=== PATIENT | female | born 1975 | race Hispanic/Latino ===

== ENCOUNTER 2021-07-14 17:01 | Emergency (ER) | payer OTHER ==
[~2021-07-14] VITALS: Ht 152.4 cm; Wt 66.4 kg
[2021-07-14] MEDS ORDERED: LOSA100T5 PO (17:13)
[2021-07-14] MEDS ORDERED: PROZ20CA11 PO (17:13)
[2021-07-14 22:11] VITALS: BP 160/88
[2021-07-14] MEDS ORDERED: KETOROLAC 30 MG/ML 1ML VIAL IM ONE (23:30)
[2021-07-14] MEDS ORDERED: methocarbamoL 500 MG TAB PO ONE (23:30)
[2021-07-14] MEDS ORDERED: LIDOCAINE 5% (LIDODERM) PATCH TD ONE (23:30)
[2021-07-15] MEDS ORDERED: METH-1164 PO (01:32)
[2021-07-15] MEDS ORDERED: LIDO5DIS41 TOP (01:33)
[2021-07-15] MEDS ORDERED: **NOTE PATIENT COMMENT** MISC XX SCH (21:00)
== END 2021-07-15 02:30 | disposition home or self-care (01) ==
LOC: M ED 17:01
DX: M54.9 Dorsalgia, unspecified (principal); W01.0XXA Fall on same level from slipping, tripping and stumbling without subsequent striking against object, initial encounter; Y92.099 Unspecified place in other non-institutional residence as the place of occurrence of the external cause; Y93.9 Activity, unspecified; Y99.9 Unspecified external cause status; I10 Essential (primary) hypertension; F17.200 Nicotine dependence, unspecified, uncomplicated
CPT/HCPCS: 72072; 72110; 84702; 99283; J1885

== ENCOUNTER 2021-10-29 10:18 | Emergency (ER) | payer OTHER ==
[~2021-10-29] VITALS: Ht 165.1 cm; Wt 66.9 kg
[~2021-10-29 10:18] MED LIST: LIDO5DIS41 TOP; LOSA100T5 PO; METH-1164 PO; PROZ20CA11 PO
[2021-10-29] MEDS ORDERED: KETOROLAC 30 MG/ML 1ML VIAL IM ONE (13:00)
[2021-10-29 13:05] VITALS: BP 190/103
[2021-10-29] MEDS ORDERED: LOSARTAN 50MG TABLET PO ONE (13:05)
[2021-10-29] MEDS ORDERED: NORV5TAB PO (13:06)
[2021-10-29] MEDS ORDERED: LOSA100T5 PO (13:06)
[2021-10-29] MEDS ORDERED: KLON2TAB PO (13:06)
[2021-10-29] MEDS ORDERED: PROZ20CA11 PO (13:06)
[2021-10-29] MEDS ORDERED: ACET650T61 PO (13:08)
[2021-10-29 14:10] VITALS: BP 169/89
== END 2021-10-29 14:22 | disposition home or self-care (01) ==
LOC: M ED 10:18
DX: Z76.0 Encounter for issue of repeat prescription (principal); G43.909 Migraine, unspecified, not intractable, without status migrainosus; I10 Essential (primary) hypertension; G89.29 Other chronic pain; M54.9 Dorsalgia, unspecified; F32.A Depression, unspecified; F41.9 Anxiety disorder, unspecified; Z79.899 Other long term (current) drug therapy
CPT/HCPCS: 96372; 99283; J1885

== ENCOUNTER → 2022-02-03 | Outpatient (REF) | payer OTHER, MEDICAID ==
[~2022-02-03] MED LIST changes: +ACET650T61 PO; +KLON2TAB PO; +NORV5TAB PO
[2022-02-03 17:29] LABS: BASO # 0.1 10^3/uL (0.0-0.2); BASO % 0.7 % (0.0-1.0); EOS # 0.1 10^3/uL (0.0-0.5); EOS % 1.1 % (0.0-3.0); HEMATOCRIT 36.1 % (36.0-47.0); HEMOGLOBIN 11.5 g/dl (12.0-15.5); LYMPH # 2.1 10^3/uL (1.5-5.0); LYMPH % 29.7 % (24.0-44.0); MEAN CORPUSCULAR HEMOGLOBIN 30.5 pg (27.0-33.0); MEAN CORPUSCULAR HGB CONC 31.9 g/dl (32.0-36.5); MEAN CORPUSCULAR VOLUME 95.8 fl (80.0-96.0); MONO # 0.4 10^3/uL (0.0-0.8); MONO % 4.9 % (2.0-8.0); NEUTROPHILS # 4.6 10^3/uL (1.5-8.5); NEUTROPHILS % 63.3 % (36.0-66.0); PLATELET COUNT, AUTOMATED 252 10^3/uL (150-450); RED BLOOD COUNT 3.77 10^6/uL (4.00-5.40); WHITE BLOOD COUNT 7.2 10^3/uL (4.0-10.0)
[2022-02-03 18:05] LABS: HEMOGLOBIN A1c 5.3 %
[2022-02-03 19:17] LABS: ALT/SGPT 18 U/L (12-78); BILIRUBIN,TOTAL 0.2 MG/DL (0.2-1.0); BLOOD UREA NITROGEN 11 MG/DL (7-18); CALCIUM LEVEL 9.2 MG/DL (8.5-10.1); CARBON DIOXIDE LEVEL 28 MEQ/L (21-32); CHLORIDE LEVEL 107 MEQ/L (98-107); CREATININE FOR GFR 0.77 MG/DL (0.55-1.30); GLOMERULAR FILTRATION RATE > 60.0 (>58); GLUCOSE, FASTING 84 MG/DL (70-100); POTASSIUM SERUM 4.1 MEQ/L (3.5-5.1); SODIUM LEVEL 139 MEQ/L (136-145)
[2022-02-03 19:18] LABS: ALBUMIN 3.4 GM/DL (3.2-5.2); CHOLESTEROL LEVEL 201 MG/DL (<200); CHOLESTEROL RISK RATIO 4.369 (<5); HDL CHOLESTEROL 46 MG/DL (>40); LDL CHOLESTEROL 133 MG/DL (<100); NON-HDL-C 155 MG/DL; TOTAL PROTEIN 7.2 GM/DL (6.4-8.2); TRIGLYCERIDES LEVEL 110 MG/DL (<150)
== END ==
LOC: M LAB REF 16:21
PROVIDERS: ATTEND Nurse Practitioner Family
DX: Z13.228 Encounter for screening for other metabolic disorders (principal)

== ENCOUNTER → 2022-02-10 | Outpatient (CLI) | payer OTHER | LOC: M WHC 07:24 | PROVIDERS: ATTEND Nurse Practitioner Family | DX: Z12.31 Encounter for screening mammogram for malignant neoplasm of breast (principal) ==

== ENCOUNTER 2022-04-05 16:46 | Emergency (ER) | payer OTHER ==
[~2022-04-05] VITALS: Ht 152.4 cm; Wt 0.6 kg
[2022-04-05] MEDS ORDERED: DIFL150T PO (18:41)
[2022-04-05] MEDS ORDERED: AMOX875T2 PO (18:41)
[2022-04-05 18:46] VITALS: BP 135/86
== END 2022-04-05 18:55 | disposition home or self-care (01) ==
LOC: M ED 16:46
DX: J01.00 Acute maxillary sinusitis, unspecified (principal); K08.89 Other specified disorders of teeth and supporting structures; I10 Essential (primary) hypertension; F17.200 Nicotine dependence, unspecified, uncomplicated; Z79.891 Long term (current) use of opiate analgesic; Z79.811 Long term (current) use of aromatase inhibitors; Z79.899 Other long term (current) drug therapy

== ENCOUNTER 2022-04-11 00:56 | Emergency (ER) | payer MEDICAID, OTHER ==
[~2022-04-11] VITALS: Ht 152.4 cm; Wt 65.8 kg
[~2022-04-11 00:56] MED LIST changes: +AMOX875T2 PO; +DIFL150T PO
[2022-04-11 00:57] VITALS: BP 137/85
[2022-04-11] MEDS ORDERED: ADVITAB PO ×2 (01:11→17:25)
== END 2022-04-11 03:17 | disposition left against medical advice (07) ==
LOC: M ED 00:56
DX: Z53.21 Procedure and treatment not carried out due to patient leaving prior to being seen by health care provider (principal)

== ENCOUNTER 2022-04-11 17:06 | Emergency (ER) | payer OTHER ==
[~2022-04-11] VITALS: Ht 152.4 cm; Wt 64.5 kg
[~2022-04-11 17:06] MED LIST changes: +ADVITAB PO
[2022-04-11 17:10] VITALS: BP 146/84
[2022-04-11] MEDS ORDERED: ADVITAB PO (17:25)
== END 2022-04-11 18:17 | disposition left against medical advice (07) ==
LOC: M ED 17:06
DX: Z53.21 Procedure and treatment not carried out due to patient leaving prior to being seen by health care provider (principal)

== ENCOUNTER 2022-04-11 18:38 | Emergency (ER) | payer OTHER ==
[~2022-04-11] VITALS: Ht 154.9 cm; Wt 63.6 kg
[2022-04-11 19:52] VITALS: BP 146/86
== END 2022-04-11 23:22 | disposition left against medical advice (07) ==
LOC: M ED 18:38
DX: Z53.21 Procedure and treatment not carried out due to patient leaving prior to being seen by health care provider (principal)

== ENCOUNTER → 2022-05-18 | Outpatient (REF) | payer OTHER ==
[2022-05-18 12:37] LABS: CHOLESTEROL RISK RATIO 4.84 (<5); HDL CHOLESTEROL 40.9 MG/DL (>40); LDL CHOLESTEROL 136.3 MG/DL (<100)
== END ==
LOC: M LAB REF 11:38
PROVIDERS: ATTEND Nurse Practitioner Family
DX: R79.89 Other specified abnormal findings of blood chemistry (principal)

== ENCOUNTER 2022-06-13 00:48 | Emergency (ER) | payer MEDICAID, OTHER ==
[~2022-06-13] VITALS: Ht 152.4 cm; Wt 64.5 kg
[2022-06-13 00:55] VITALS: BP 126/97
[2022-06-13 01:38] LABS: BASO # 0.1 10^3/uL (0.0-0.2); BASO % 0.7 % (0.0-1.0); EOS # 0.3 10^3/uL (0.0-0.5); EOS % 3.7 % (0.0-3.0); HEMATOCRIT 33.7 % (36.0-47.0); HEMOGLOBIN 11.1 g/dl (12.0-15.5); LYMPH # 2.7 10^3/uL (1.5-5.0); LYMPH % 33.7 % (24.0-44.0); MEAN CORPUSCULAR HGB CONC 32.9 g/dl (32.0-36.5); MEAN CORPUSCULAR VOLUME 97.1 fl (80.0-96.0); MONO # 0.5 10^3/uL (0.0-0.8); MONO % 5.9 % (2.0-8.0); NEUTROPHILS # 4.5 10^3/uL (1.5-8.5); NEUTROPHILS % 55.6 % (36.0-66.0); PLATELET COUNT, AUTOMATED 301 10^3/uL (150-450); RED BLOOD COUNT 3.47 10^6/uL (4.00-5.40)
[2022-06-13 04:59] LABS: ALBUMIN 3.5 G/DL (3.2-5.2); ALKALINE PHOSPHATASE 59 U/L (46-116); ALT/SGPT 18 U/L (7.0-40); AST/SGOT 38 U/L (<34); BILIRUBIN,DIRECT < 0.1 MG/DL (<0.4); BILIRUBIN,TOTAL 0.2 MG/DL (0.3-1.2); BLOOD UREA NITROGEN 16 MG/DL (9-23); CALCIUM LEVEL 8.7 MG/DL (8.5-10.1); CARBON DIOXIDE LEVEL 27 MMOL/L (20-31); CHLORIDE LEVEL 107 MMOL/L (98-107); CREATININE FOR GFR 0.95 MG/DL (0.55-1.30); GLOMERULAR FILTRATION RATE > 60.0 (>58); GLUCOSE, FASTING 100 MG/DL (60-100); LIPASE 95 U/L (12-53); POTASSIUM SERUM 4.5 MMOL/L (3.5-5.1); SODIUM LEVEL 139 MMOL/L (136-145); TOTAL PROTEIN 6.9 G/DL (5.7-8.2)
== END 2022-06-13 04:06 | disposition left against medical advice (07) ==
LOC: M ED 00:48 → EDBD 00:48 → M ED 04:06
DX: Z53.21 Procedure and treatment not carried out due to patient leaving prior to being seen by health care provider (principal)

== ENCOUNTER → 2022-06-16 | Outpatient (REF) | payer OTHER ==
[~2022-06-16] MED LIST changes: +CEFD300C41; +FLUTISP; +KLON1TAB PO; +LORA-674; +MIRA3350 PO; +ONDA4TAB6; +ONDA4TAB6 PO; +PHEN1TAB73; +TAMS1CAP17
== END ==
LOC: M PLALAB 16:33
PROVIDERS: ATTEND Advanced Practice Midwife
DX: Z12.4 Encounter for screening for malignant neoplasm of cervix (principal); R87.610 Atypical squamous cells of undetermined significance on cytologic smear of cervix (ASC-US)

== ENCOUNTER 2022-06-21 15:08 | Emergency (ER) | payer OTHER ==
[~2022-06-21] VITALS: Ht 152.4 cm; Wt 63.6 kg
[~2022-06-21 15:08] MED LIST changes: -CEFD300C41; -FLUTISP; -KLON1TAB PO; -LORA-674; -MIRA3350 PO; -ONDA4TAB6; -ONDA4TAB6 PO; -PHEN1TAB73; -TAMS1CAP17
[2022-06-21] MEDS ORDERED: FLUTISP (15:26)
[2022-06-21] MEDS ORDERED: LORA-674 (15:26)
[2022-06-21] MEDS ORDERED: CEFD300C41 (15:26)
[2022-06-21] MEDS ORDERED: KLON1TAB PO (15:26)
[2022-06-21] MEDS ORDERED: PHEN1TAB73 (15:26)
[2022-06-21] MEDS ORDERED: ONDA4TAB6 (15:26)
[2022-06-21] MEDS ORDERED: TAMS1CAP17 (15:26)
[2022-06-21 20:59] LABS: BASO # 0.1 10^3/uL (0.0-0.2); BASO % 0.9 % (0.0-1.0); EOS # 0.2 10^3/uL (0.0-0.5); EOS % 2.4 % (0.0-3.0); HEMATOCRIT 33.6 % (36.0-47.0); LYMPH # 2.4 10^3/uL (1.5-5.0); LYMPH % 34.7 % (24.0-44.0); MEAN CORPUSCULAR HGB CONC 32.7 g/dl (32.0-36.5); MEAN CORPUSCULAR VOLUME 97.7 fl (80.0-96.0); MONO # 0.4 10^3/uL (0.0-0.8); NEUTROPHILS # 3.9 10^3/uL (1.5-8.5); NEUTROPHILS % 55.7 % (36.0-66.0); PLATELET COUNT, AUTOMATED 306 10^3/uL (150-450); RED BLOOD COUNT 3.44 10^6/uL (4.00-5.40)
[2022-06-21 21:14] LABS: ALBUMIN 3.6 G/DL (3.2-5.2); ALKALINE PHOSPHATASE 57 U/L (46-116); ALT/SGPT 25 U/L (7.0-40); AST/SGOT 44 U/L (<34); BILIRUBIN,TOTAL 0.3 MG/DL (0.3-1.2); BLOOD UREA NITROGEN 9 MG/DL (9-23); CALCIUM LEVEL 8.9 MG/DL (8.5-10.1); CARBON DIOXIDE LEVEL 26 MMOL/L (20-31); CHLORIDE LEVEL 107 MMOL/L (98-107); CREATININE FOR GFR 0.77 MG/DL (0.55-1.30); GLOMERULAR FILTRATION RATE > 60.0 (>58); GLUCOSE, FASTING 100 MG/DL (60-100); LIPASE 90 U/L (12-53); POTASSIUM SERUM 4.9 MMOL/L (3.5-5.1); SODIUM LEVEL 140 MMOL/L (136-145); TOTAL PROTEIN 7.2 G/DL (5.7-8.2)
[2022-06-21] MEDS ORDERED: NS 1,000 ML IV ONE (21:15)
[2022-06-21] MEDS ORDERED: MORPHINE 4 MG/ML 1ML VIAL IV ONE (21:15)
[2022-06-21] MEDS ORDERED: ONDANSETRON 4MG 2ML VIAL IV ONE (21:15)
[2022-06-21] MEDS ORDERED: ISOVUE-370 76% 100ML VIAL As Ordered ONE (21:22)
[2022-06-21] MEDS ORDERED: ONDA4TAB6 PO (23:31)
[2022-06-21 23:42] VITALS: BP 144/83
[2022-06-21] MEDS ORDERED: MIRA3350 PO (23:44)
== END 2022-06-21 23:44 | disposition home or self-care (01) ==
LOC: M ED 15:08
DX: R10.9 Unspecified abdominal pain (principal); R11.2 Nausea with vomiting, unspecified; D35.00 Benign neoplasm of unspecified adrenal gland; R74.8 Abnormal levels of other serum enzymes; M54.50 Low back pain, unspecified; I10 Essential (primary) hypertension; F17.200 Nicotine dependence, unspecified, uncomplicated; Z87.442 Personal history of urinary calculi; Z88.1 Allergy status to other antibiotic agents; Z79.811 Long term (current) use of aromatase inhibitors; Z79.2 Long term (current) use of antibiotics; Z79.83 Long term (current) use of bisphosphonates; Z79.899 Other long term (current) drug therapy
CPT/HCPCS: 74177; 76830; 76856; 80053; 81001; 83690; 85025; 93005; 93976; 96361; 96374; 99284; J2270; J2405; Q9967

== ENCOUNTER 2022-07-28 00:02 | Emergency (ER) | payer MEDICAID, OTHER ==
[~2022-07-28] VITALS: Ht 152.4 cm; Wt 66.8 kg
[~2022-07-28 00:02] MED LIST changes: +CEFD300C41; +FLUT50SP17; +KLON1TAB PO; +LORA-674; +MIRA3350 PO; +ONDA4TAB6; +ONDA4TAB6 PO; +PHEN1TAB73; +TAMS1CAP17
[2022-07-28 00:11] VITALS: BP 174/109
[2022-07-28] MEDS ORDERED: ERYTHROMYCIN OPHTH OINT OU ONE (01:25)
[2022-07-28] MEDS ORDERED: ERYT5OIN25 OP (01:30)
== END 2022-07-28 02:27 | disposition home or self-care (01) ==
LOC: M ED 00:02 → EDBD 00:02 → M ED 02:27
DX: H10.33 Unspecified acute conjunctivitis, bilateral (principal); I10 Essential (primary) hypertension; F41.9 Anxiety disorder, unspecified; F32.A Depression, unspecified; Z88.1 Allergy status to other antibiotic agents; Z79.83 Long term (current) use of bisphosphonates; Z79.811 Long term (current) use of aromatase inhibitors; Z79.899 Other long term (current) drug therapy

== ENCOUNTER → 2022-12-08 | Outpatient (CLI) | payer OTHER ==
[~2022-12-08] MED LIST changes: +CLON-952 PO; +ERYT5OIN25 OP; -KLON2TAB PO; +LORA-1041; -LORA-674
[2022-12-08 19:46] LABS: HIV 1&2 SCREEN NEGATIVE (NEGATIVE)
[2022-12-08 19:54] LABS: HEPATITIS C VIRUS ABY INDEX 0.16 INDEX (<0.8)
[2022-12-08 19:55] LABS: HEPATITIS B CORE ANTIBODY IGM NEGATIVE (NEGATIVE)
== END ==
LOC: M PLALAB 15:22
PROVIDERS: ATTEND Nurse Practitioner Family
DX: Z11.3 Encounter for screening for infections with a predominantly sexual mode of transmission (principal)

== ENCOUNTER 2023-01-13 06:09 | Emergency (ER) | payer OTHER ==
[~2023-01-13] VITALS: Ht 152.4 cm; Wt 65.9 kg
[~2023-01-13 06:09] MED LIST changes: -CEFD300C41; +CEFD300C42
[2023-01-13 06:17] VITALS: TEMP 98.1
[2023-01-13] MEDS ORDERED: AMOX500T PO (07:19)
[2023-01-13] MEDS ORDERED: AMPICILLIN SOD/SULBACTAM SOD 3 GM in D5W MINI-BAG PLUS 100 ML IV ONE (07:25)
[2023-01-13] MEDS ORDERED: KETOROLAC 30 MG/ML 1ML VIAL IV ONE (07:25)
[2023-01-13] MEDS ORDERED: dexAMETHasone 20MG/5ML VIAL IV ONE (07:25)
[2023-01-13] MEDS ORDERED: NS 1,000 ML IV ONE (07:25)
[2023-01-13 07:49] LABS: BASO % 0.4 % (0.0-1.0); EOS # 0.1 10^3/uL (0.0-0.5); EOS % 0.9 % (0.0-3.0); HEMATOCRIT 36.3 % (36.0-47.0); HEMOGLOBIN 12.3 g/dl (12.0-15.5); LYMPH # 1.2 10^3/uL (1.5-5.0); LYMPH % 13.1 % (24.0-44.0); MEAN CORPUSCULAR HEMOGLOBIN 33.2 pg (27.0-33.0); MEAN CORPUSCULAR HGB CONC 33.9 g/dl (32.0-36.5); MEAN CORPUSCULAR VOLUME 98.1 fl (80.0-96.0); MONO # 0.7 10^3/uL (0.0-0.8); MONO % 7.5 % (2.0-8.0); NEUTROPHILS # 7.3 10^3/uL (1.5-8.5); NEUTROPHILS % 77.9 % (36.0-66.0); PLATELET COUNT, AUTOMATED 254 10^3/uL (150-450); WHITE BLOOD COUNT 9.4 10^3/uL (4.0-10.0)
[2023-01-13 08:10] LABS: ERYTHROCYTE SEDIMENTATION RATE 31 mm/hr (0-20)
[2023-01-13 08:30] LABS: HCG, SERUM QUANTITATIVE 6.1 MIU/ML (<4.2)
[2023-01-13] MEDS ORDERED: ISOVUE-370 76% 100ML VIAL As Ordered ONE (08:54)
[2023-01-13 08:55] LABS: C REACTIVE PROTEIN QUANTITATIV 0.7 MG/DL (<1.0)
[2023-01-13] MEDS ORDERED: IBUP-1022 PO (10:35)
[2023-01-13] MEDS ORDERED: AMOX875T2 PO (10:35)
[2023-01-13 10:48] VITALS: BP 160/90; O2SAT 100
== END 2023-01-13 11:10 | disposition home or self-care (01) ==
LOC: M ED 06:09 → EDBD 06:09 → M ED 11:10
DX: K04.7 Periapical abscess without sinus (principal); L03.211 Cellulitis of face; F17.200 Nicotine dependence, unspecified, uncomplicated; Z88.1 Allergy status to other antibiotic agents; Z79.2 Long term (current) use of antibiotics; Z79.811 Long term (current) use of aromatase inhibitors; Z79.899 Other long term (current) drug therapy
CPT/HCPCS: 70487; 80047; 84702; 85025; 85652; 86140; 96365; 96375; 99284; J0295; J1100; J1885; Q9967

== ENCOUNTER → 2023-02-03 | Outpatient (REF) | payer OTHER ==
[~2023-02-03] MED LIST changes: +AMOX500T PO; +IBUP-1022 PO
== END ==
LOC: M SFHCWAGY 17:14
PROVIDERS: ATTEND Nurse Practitioner Family
DX: N89.8 Other specified noninflammatory disorders of vagina (principal)

== ENCOUNTER → 2023-05-05 | Outpatient (REF) | payer OTHER ==
[~2023-05-05] MED LIST changes: +CEFD1CAP9; -CEFD300C42; -FLUT50SP17; +FLUTISP
[2023-05-05 17:27] LABS: BASO % 0.6 % (0.0-1.0); EOS # 0.1 10^3/uL (0.0-0.5); EOS % 1.1 % (0.0-3.0); HEMATOCRIT 40.1 % (36.0-47.0); HEMOGLOBIN 13.5 g/dl (12.0-15.5); LYMPH # 1.9 10^3/uL (1.5-5.0); LYMPH % 36.1 % (24.0-44.0); MEAN CORPUSCULAR HEMOGLOBIN 32.6 pg (27.0-33.0); MEAN CORPUSCULAR HGB CONC 33.7 g/dl (32.0-36.5); MEAN CORPUSCULAR VOLUME 96.9 fl (80.0-96.0); MONO # 0.4 10^3/uL (0.0-0.8); MONO % 6.8 % (2.0-8.0); NEUTROPHILS # 2.9 10^3/uL (1.5-8.5); NEUTROPHILS % 55.2 % (36.0-66.0); PLATELET COUNT, AUTOMATED 264 10^3/uL (150-450); RED BLOOD COUNT 4.14 10^6/uL (4.00-5.40); WHITE BLOOD COUNT 5.3 10^3/uL (4.0-10.0)
[2023-05-05 18:00] LABS: ALKALINE PHOSPHATASE 69 U/L (46-116); ALT/SGPT 16 U/L (7.0-40); AST/SGOT 12 U/L (<34); BILIRUBIN,TOTAL 0.3 MG/DL (0.3-1.2); BLOOD UREA NITROGEN 11 MG/DL (9-23); CALCIUM LEVEL 9.7 MG/DL (8.5-10.1); CARBON DIOXIDE LEVEL 29 MMOL/L (20-31); CHLORIDE LEVEL 103 MMOL/L (98-107); CHOLESTEROL LEVEL 236 MG/DL (<200); CHOLESTEROL RISK RATIO 5.11 (<5); GLOMERULAR FILTRATION RATE > 60.0 (>58); GLUCOSE, FASTING 69 MG/DL (60-100); HDL CHOLESTEROL 46.1 MG/DL (>40); LDL CHOLESTEROL 166.7 MG/DL (<100); MAGNESIUM LEVEL 2.1 MG/DL (1.8-2.4); NON-HDL-C 189.9 MG/DL; POTASSIUM SERUM 4.3 MMOL/L (3.5-5.1); SODIUM LEVEL 138 MMOL/L (136-145); TOTAL PROTEIN 7.7 G/DL (5.7-8.2); TRIGLYCERIDES LEVEL 116 MG/DL (<150)
[2023-05-05 18:01] LABS: THYROID STIMULATING HORMONE 1.065 uIU/ML (0.55-4.78); TOTAL 25(OH) VITAMIN D 36.3 NG/ML (20.0-100.0)
== END ==
LOC: M LAB REF 16:45
PROVIDERS: ATTEND Nurse Practitioner Family
DX: E66.3 Overweight (principal); E55.9 Vitamin D deficiency, unspecified

== ENCOUNTER → 2023-05-12 | Outpatient (CLI) | payer OTHER | LOC: M WHC 09:53 | PROVIDERS: ATTEND Nurse Practitioner Family | DX: Z12.31 Encounter for screening mammogram for malignant neoplasm of breast (principal); R92.333 Mammographic heterogeneous density, bilateral breasts ==

== ENCOUNTER → 2023-08-02 | Outpatient (REF) | payer OTHER ==
[~2023-08-02] MED LIST changes: -KLON1TAB PO; +KLON1TAB13 PO
[2023-08-02 17:57] LABS: Trichomonas vaginalis (AMP) NOT DETECTED (NEGATIVE)
[2023-08-02 18:22] LABS: GC DNA AMPLIFICATION NEGATIVE (NEGATIVE)
== END ==
LOC: M LAB REF 16:30
PROVIDERS: ATTEND Nurse Practitioner Family
DX: N89.9 Noninflammatory disorder of vagina, unspecified (principal)

== ENCOUNTER → 2023-08-03 | Outpatient (REF) | payer OTHER | LOC: M LAB REF 13:32 | PROVIDERS: ATTEND Nurse Practitioner Family | DX: Z12.4 Encounter for screening for malignant neoplasm of cervix (principal) ==

== ENCOUNTER → 2023-11-09 | Outpatient (REF) | payer OTHER ==
[~2023-11-09] MED LIST changes: +ONDA-282; +ONDA-282 PO; -ONDA4TAB6; -ONDA4TAB6 PO
[2023-11-09 19:18] LABS: ALBUMIN 4.1 G/DL (3.2-5.2); ALKALINE PHOSPHATASE 71 U/L (46-116); ALT/SGPT 12 U/L (7.0-40); AST/SGOT 11 U/L (<34); BILIRUBIN,TOTAL 0.2 MG/DL (0.3-1.2); BLOOD UREA NITROGEN 11 MG/DL (9-23); CALCIUM LEVEL 10.1 MG/DL (8.5-10.1); CARBON DIOXIDE LEVEL 31 MMOL/L (20-31); CHLORIDE LEVEL 103 MMOL/L (98-107); CREATININE FOR GFR 0.74 MG/DL (0.55-1.30); GLOMERULAR FILTRATION RATE > 60.0 (>58); GLUCOSE, FASTING 70 MG/DL (60-100); POTASSIUM SERUM 4.3 MMOL/L (3.5-5.1); SODIUM LEVEL 137 MMOL/L (136-145); TOTAL PROTEIN 7.8 G/DL (5.7-8.2)
== END ==
LOC: M LAB REF 16:35
PROVIDERS: ATTEND Nurse Practitioner Family
DX: B37.31 Acute candidiasis of vulva and vagina (principal)

== ENCOUNTER → 2024-02-15 | Outpatient (REF) | payer OTHER ==
[2024-02-15 18:54] LABS: BASO # 0.1 10^3/uL (0.0-0.2); BASO % 1.1 % (0.0-1.0); EOS # 0.1 10^3/uL (0.0-0.5); EOS % 1.4 % (0.0-3.0); HEMATOCRIT 43.1 % (36.0-47.0); HEMOGLOBIN 14.1 g/dl (12.0-15.5); LYMPH # 1.9 10^3/uL (1.5-5.0); LYMPH % 30.8 % (24.0-44.0); MEAN CORPUSCULAR HEMOGLOBIN 32.3 pg (27.0-33.0); MEAN CORPUSCULAR HGB CONC 32.7 g/dl (32.0-36.5); MEAN CORPUSCULAR VOLUME 98.9 fl (80.0-96.0); MONO # 0.5 10^3/uL (0.0-0.8); MONO % 7.7 % (2.0-8.0); NEUTROPHILS # 3.7 10^3/uL (1.5-8.5); NEUTROPHILS % 58.8 % (36.0-66.0); PLATELET COUNT, AUTOMATED 263 10^3/uL (150-450); RED BLOOD COUNT 4.36 10^6/uL (4.00-5.40); WHITE BLOOD COUNT 6.2 10^3/uL (4.0-10.0)
[2024-02-15 19:24] LABS: ALBUMIN 3.9 G/DL (3.2-5.2); ALKALINE PHOSPHATASE 75 U/L (35-104); ALT/SGPT 12 U/L (7.0-40); AST/SGOT 9 U/L (<34); BILIRUBIN,TOTAL 0.4 MG/DL (0.3-1.2); BLOOD UREA NITROGEN 10 MG/DL (9-23); CALCIUM LEVEL 10.2 MG/DL (8.5-10.1); CARBON DIOXIDE LEVEL 32 MMOL/L (20-31); CHLORIDE LEVEL 105 MMOL/L (98-107); CHOLESTEROL LEVEL 235 MG/DL (<200); CHOLESTEROL RISK RATIO 4.66 (<5); CREATININE FOR GFR 0.86 MG/DL (0.55-1.30); GLOMERULAR FILTRATION RATE > 60.0 (>58); GLUCOSE, FASTING 67 MG/DL (60-100); HDL CHOLESTEROL 50.4 MG/DL (>40); LDL CHOLESTEROL 142.2 MG/DL (<100); NON-HDL-C 184.6 MG/DL; POTASSIUM SERUM 4.1 MMOL/L (3.5-5.1); SODIUM LEVEL 140 MMOL/L (136-145); TOTAL PROTEIN 7.8 G/DL (5.7-8.2); TRIGLYCERIDES LEVEL 212 MG/DL (<150)
== END ==
LOC: M LAB REF 17:51
PROVIDERS: ATTEND Nurse Practitioner Family
DX: E66.3 Overweight (principal)

== ENCOUNTER → 2024-06-06 | Outpatient (CLI) | payer OTHER ==
[2024-06-06 16:01] LABS: FREE T4 1.25 NG/DL (0.89-1.76); THYROID STIMULATING HORMONE 1.258 uIU/ML (0.55-4.78)
== END ==
LOC: M LAB 13:46
PROVIDERS: ATTEND Nurse Practitioner Psychiatric/Mental Health
DX: F41.9 Anxiety disorder, unspecified (principal); F43.10 Post-traumatic stress disorder, unspecified

== ENCOUNTER → 2024-12-12 | Outpatient (REF) | payer OTHER ==
[~2024-12-12] MED LIST changes: -IBUP-1022 PO; +IBUP600T42 PO; +LIDO1ADH93 TOP; -LIDO5DIS41 TOP; -PROZ20CA11 PO; +PROZ20CA12 PO
[2024-12-12 13:22] LABS: BASO # 0.1 10^3/uL (0.0-0.2); BASO % 0.9 % (0.0-1.0); EOS # 0.1 10^3/uL (0.0-0.5); EOS % 1.1 % (0.0-3.0); LYMPH # 1.8 10^3/uL (1.5-5.0); LYMPH % 33.1 % (24.0-44.0); MONO # 0.4 10^3/uL (0.0-0.8); MONO % 8.0 % (2.0-8.0); NEUTROPHILS # 3.1 10^3/uL (1.5-8.5); NEUTROPHILS % 56.7 % (36.0-66.0); PLATELET COUNT, AUTOMATED 257 10^3/uL (150-450)
[2024-12-12 13:25] LABS: ALT/SGPT 28.0 U/L (7.0-40); AST/SGOT 26.0 U/L (<34); CALCIUM LEVEL 10.0 MG/DL (8.5-10.1); CARBON DIOXIDE LEVEL 30.0 MMOL/L (20-31); CHLORIDE LEVEL 105.0 MMOL/L (98-107); CHOLESTEROL LEVEL 280.0 MG/DL (<200); CHOLESTEROL RISK RATIO 6.2 (<5); CREATININE FOR GFR 0.95 MG/DL (0.55-1.30); GLOMERULAR FILTRATION RATE 73.0 (>51); LDL CHOLESTEROL 201.1 MG/DL (<100); MAGNESIUM LEVEL 2.2 MG/DL (1.8-2.4); NON-HDL-C 234.9 MG/DL; POTASSIUM SERUM 4.0 MMOL/L (3.5-5.1); SODIUM LEVEL 144.0 MMOL/L (136-145); TRIGLYCERIDES LEVEL 169.0 MG/DL (<150)
== END ==
LOC: M LAB REF 11:49
PROVIDERS: ATTEND Nurse Practitioner Family
DX: I10 Essential (primary) hypertension (principal); E78.5 Hyperlipidemia, unspecified

== ENCOUNTER → 2025-02-07 | Outpatient (CLI) | payer OTHER | LOC: M RAD 17:37 | PROVIDERS: ATTEND Student in an Organized Health Care Education/Training Program | DX: M79.645 Pain in left finger(s) (principal); M54.50 Low back pain, unspecified; R22.32 Localized swelling, mass and lump, left upper limb ==

== ENCOUNTER 2025-03-02 17:01 | Emergency (ER) | payer OTHER ==
[~2025-03-02] VITALS: Ht 152.4 cm; Wt 72.7 kg
[~2025-03-02 17:01] MED LIST changes: -PROZ20CA12 PO; +PROZ20CA25 PO
[2025-03-02 17:07] VITALS: BP 122/88; TEMP 96.3; O2SAT 100
[2025-03-02] MEDS: KETOROLAC 60 MG/2 ML VIAL IM ONE (20:23)
[2025-03-02] MEDS: ACETAMINOPHEN 500 MG TAB PO ONE (20:23)
== END 2025-03-02 20:53 | disposition left against medical advice (07) ==
LOC: M ED 17:01 → EDUNIT# 17:01 → EDBD 17:01 → M ED 20:53
DX: M54.50 Low back pain, unspecified (principal); I10 Essential (primary) hypertension; J98.11 Atelectasis; I70.0 Atherosclerosis of aorta; K42.9 Umbilical hernia without obstruction or gangrene; K44.9 Diaphragmatic hernia without obstruction or gangrene; N20.0 Calculus of kidney; M41.86 Other forms of scoliosis, lumbar region; K59.00 Constipation, unspecified; F41.9 Anxiety disorder, unspecified; F32.A Depression, unspecified; F17.200 Nicotine dependence, unspecified, uncomplicated; Z88.1 Allergy status to other antibiotic agents; Z87.442 Personal history of urinary calculi; Z79.899 Other long term (current) drug therapy; Z53.9 Procedure and treatment not carried out, unspecified reason
CPT/HCPCS: 72131; 74176; 96372; 99283; J1885

== ENCOUNTER 2025-03-23 16:08 | Emergency (ER) | payer OTHER ==
[~2025-03-23] VITALS: Ht 152.4 cm; Wt 72.8 kg
[2025-03-23 18:31] VITALS: TEMP 97.7
[2025-03-23 19:42] LABS: BASO # 0.1 10^3/uL (0.0-0.2); BASO % 0.8 % (0.0-1.0); EOS # 0.2 10^3/uL (0.0-0.5); EOS % 2.0 % (0.0-3.0); LYMPH # 2.5 10^3/uL (1.5-5.0); LYMPH % 31.9 % (24.0-44.0); MONO # 0.4 10^3/uL (0.0-0.8); MONO % 4.7 % (2.0-8.0); NEUTROPHILS # 4.7 10^3/uL (1.5-8.5); NEUTROPHILS % 60.5 % (36.0-66.0); PLATELET COUNT, AUTOMATED 327 10^3/uL (150-450)
[2025-03-23 20:18] LABS: ALT/SGPT 45 U/L (7.0-40); AST/SGOT 37 U/L (<34); CALCIUM LEVEL 9.6 MG/DL (8.5-10.1); CARBON DIOXIDE LEVEL 28 MMOL/L (20-31); CHLORIDE LEVEL 105 MMOL/L (98-107); CREATININE FOR GFR 0.79 MG/DL (0.55-1.30); GLOMERULAR FILTRATION RATE > 90.0 (>51); POTASSIUM SERUM 3.8 MMOL/L (3.5-5.1); SODIUM LEVEL 141 MMOL/L (136-145)
[2025-03-23 20:19] LABS: FREE T4 1.20 NG/DL (0.89-1.76)
[2025-03-23 21:21] VITALS: BP 156/82; O2SAT 100
== END 2025-03-23 21:34 | disposition home or self-care (01) ==
LOC: M ED 16:08
DX: R60.0 Localized edema (principal); R74.01 Elevation of levels of liver transaminase levels; G35.D Multiple sclerosis, unspecified; I10 Essential (primary) hypertension; F41.9 Anxiety disorder, unspecified; F17.200 Nicotine dependence, unspecified, uncomplicated; Z88.1 Allergy status to other antibiotic agents; Z79.1 Long term (current) use of non-steroidal anti-inflammatories (NSAID); Z79.899 Other long term (current) drug therapy